=== PATIENT | male | born 1995 | race Caucasian/White ===

== ENCOUNTER 2024-07-19 12:15 | Emergency (ER) | payer SELFPAY ==
[2024-07-19] MEDS: Sodium Chloride 0.9% 1,000 ML IV ONE (12:51)
[2024-07-19] MEDS: Ondansetron 4 MG/2 ML SDV IVPUSH ONE (12:51)
[2024-07-19 13:02] LABS: BASOPHILS PERCENT AUTO 0.2 % (0.0-1.0); EOSINOPHILS PERCENT AUTO 0.2 % (0.0-6.0); HEMATOCRIT 43.9 % (42.0-52.0); HEMOGLOBIN 15.4 gm/dl (14.0-18.0); IMMATURE GRAN ABSOLUTE AUTO 0.03 K/mm3 (0.00-0.05); IMMATURE GRAN PERCENT AUTO 0.4 % (0.0-0.4); LYMPHOCYTES ABSOLUTE AUTO 0.5 K/mm3 (1.0-4.8); MEAN CORPUSCULAR HEMOGLOBIN 30.8 pg (28.0-32.0); MEAN CORPUSCULAR HGB CONC 35.1 g/dl (32.0-36.0); MEAN CORPUSCULAR VOLUME 87.8 fl (83.0-99.0); MEAN PLATELET VOLUME 9.3 fl (9.4-12.4); MONOCYTES ABSOLUTE AUTO 0.6 K/mm3 (0.0-0.8); MONOCYTES PERCENT AUTO 7.3 % (0.0-8.0); NEUTROPHILS ABSOLUTE AUTO 7.3 K/mm3 (1.8-7.7); NEUTROPHILS PERCENT AUTO 85.9 % (41.0-71.0); PLATELET COUNT,PLT 232 K/mm3 (150-400); WHITE BLOOD CELL COUNT,WBC 8.54 K/mm3 (3.9-11.3)
[2024-07-19 13:27] LABS: A/G RATIO 1.3 (1-2); ALBUMIN 4.2 g/dl (3.4-5.0); ANION GAP 16.9 (5-15); BILIRUBIN TOTAL 1.3 mg/dL (0.2-1.0); BUN/CREATININE RATIO 18.2 (14-18); C-REACTIVE PROTEIN 2.27 mg/dL (<0.30); CALCIUM 8.9 mg/dL (8.5-10.1); CREATININE 1.1 mg/dL (0.7-1.3); EST CRCL DRUG DOSING (CG) 94.96 mL/min; PROTEIN TOTAL,TP 7.5 g/dl (6.4-8.2)
[2024-07-19 13:32] LABS: POTASSIUM,K 3.9 mEq/L (3.5-5.1)
== END 2024-07-19 14:10 | disposition home or self-care (01) ==
LOC: JD.ED 12:15
DX: R11.2 Nausea with vomiting, unspecified (principal)
CPT/HCPCS: 36415; 80053; 83690; 85025; 86140; 96361; 96374; 99283; 99284-25; J2405; J7030

== ENCOUNTER 2025-01-01 22:58 | Emergency (ER) | payer OTHER ==
[2025-01-02] MEDS: Ketorolac 30 MG/ML SDV IM ONE (00:16)
== END 2025-01-02 00:20 | disposition home or self-care (01) ==
LOC: JD.ED 22:58
DX: M54.6 Pain in thoracic spine (principal); F17.200 Nicotine dependence, unspecified, uncomplicated; Z86.16 Personal history of COVID-19
CPT/HCPCS: 96372; 99283; J1885; 99284

== ENCOUNTER 2025-07-10 19:25 | Emergency (ER) | payer SELFPAY | END 2025-07-10 20:32 | disposition home or self-care (01) | LOC: JD.ED 19:25 | DX: L03.011 Cellulitis of right finger (principal); Z86.16 Personal history of COVID-19 | CPT/HCPCS: 99283 ==